=== PATIENT | female | born 1975 | race Caucasian/White ===

== ENCOUNTER 2017-11-08 09:17 | Emergency (ER) | payer MEDICAID ==
[~2017-11-08] VITALS: Ht 154.9 cm; Wt 66.2 kg
[2017-11-08 09:29] VITALS: BP 104/66
--- NOTE | 2017-11-08 09:36 | NUR ---
PT AMBULATES TO BED 7
--- NOTE | 2017-11-08 09:37 | NUR ---
DR WALLACE EVALUATING AT BEDSIDE
[2017-11-08] MEDS ORDERED: SILVER SULFADIAZINE 1% 50 GM JAR TP ONE (09:40)
[2017-11-08] MEDS ORDERED: HYDROcodone/APAP 10/325 MG 1 TAB TAB PO PRN (09:45)
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
--- NOTE | 2017-11-08 10:23 | NUR ---
Patient discharged with v/s stable. Written and verbal after care instructions given and explained. Patient alert, oriented and verbalized understanding of instructions. Ambulatory with steady gait. All questions addressed prior to discharge. ID band removed. Patient advised to follow up with PMD. Rx of NORCO given. Patient educated on indication of medication including possible reaction and side effects. PT INSTRUCTED TO VISIT [facility] TOMORROW PER DOCTORS ORDER. PROVIDED ADDRESS AND PHONE NUMBER. Opportunity to ask questions provided and answered.
[2017-11-08 10:24] VITALS: BP 99/61
--- NOTE | 2017-11-08 10:26 | NUR ---
NORCO 10/325 MG PO GIVEN AT 0941 AM.
== END 2017-11-08 10:26 | disposition home or self-care (01) ==
LOC: MED 09:17
DX: T21.22XA Burn of second degree of abdominal wall, initial encounter (principal); X08.8XXA Exposure to other specified smoke, fire and flames, initial encounter; Y93.89 Activity, other specified; Y92.89 Other specified places as the place of occurrence of the external cause; Y99.8 Other external cause status
CPT/HCPCS: 16020; 99284

== ENCOUNTER 2018-09-08 13:22 | Emergency (ER) | payer MEDICAID ==
[~2018-09-08] VITALS: Ht 149.9 cm; Wt 68.0 kg
[2018-09-08 13:46] VITALS: BP 108/60
[2018-09-08 14:24] VITALS: BP 108/60
== END 2018-09-08 14:25 | disposition home or self-care (01) ==
LOC: MED 13:22
DX: K59.00 Constipation, unspecified (principal)
CPT/HCPCS: 81002; 81025; 99283